=== PATIENT | female | born 1940 | race Caucasian/White ===

== ENCOUNTER → 2018-04-21 07:59 | Outpatient (CLI) | payer OTHER, SELFPAY ==
[2018-04-21 08:04] LABS: Bacteria Urine None Seen; RBC Urine None Seen (0-5/HPF); WBC Urine None Seen (0-5/HPF)
[2018-04-21 08:48] LABS: Appearance Urine UA CLEAR; Bilirubin Urine UA NEGATIVE (NEGATIVE); Color Urine UA YELLOW; Glucose Urine UA NEGATIVE (Normal); Ketones Urine UA TRACE (NEGATIVE); Leukocyte Esterase Urine UA TRACE (NEGATIVE); Nitrite Urine UA Negative (Negative); Occult Blood Urine UA TRACE-LYSED (Negative); Protein Urine UA NEGATIVE (Negative); Urobilinogen Urine UA 0.2 E.U./dL (0.2)
[2018-04-21 09:04] LABS: Add Manual Diff / Slide Review NO; Basophils Percent Auto 0.4 % (0-2); Hematocrit 44.7 % (36-46); Hemoglobin 15.1 g/dL (12.0-16.0); Lymphocytes Percent Auto 41.3 % (25-40); Mean Corpuscular HGB Conc 33.8 % (30-36); Mean Corpuscular Hemoglobin 32.2 PG (26-34); Mean Corpuscular Volume 95.3 fL (80-100); Monocytes Percent Auto 4.6 % (3-14); Neutrophils Absolute Auto 5700 /uL (3000-5900); Neutrophils Percent Auto 50.7 % (50-75); Platelet Count 348 X10^3/uL (150-400); Red Blood Cell Count 4.69 X10^6/uL (4.0-5.2); White Blood Cell Count 11.3 X10^3/uL (4.5-11.0)
[2018-04-21 09:09] LABS: Alanine Aminotransferase 26 IU/L (9-52); Albumin 4.9 g/dL (3.5-5.0); Albumin Globulin Ratio 1.6 (1.0-2.8); Alkaline Phosphatase 61 U/L (38-126); Aspartate Aminotransferase 24 IU/L (14-36); Bilirubin Total 0.4 mg/dL (0.2-1.3); Blood Urea Nitrogen 21 mg/dL (7-17); Calcium 9.7 mg/dL (8.4-10.2); Carbon Dioxide 25 mmol/L (22-32); Chloride 108 mmol/L (98-107); Estimated Glomerular Filt Rate > 60.0 mL/min (>60); Glucose 109 mg/dL (80-110); HEMOLYSIS < 15 (0-50); Potassium 3.9 mmol/L (3.4-5.1); Sodium 146 mmol/L (137-145); Total Protein 7.9 g/dL (6.3-8.2)
[2018-04-21 09:14] LABS: Culture Indicated Urine Cult Not Indicated; Urine Comments Microscopic Normal
[2018-04-21 09:41] LABS: Thyroid Stimulating Hormone 1.55 uIU/mL (0.47-4.68)
== END ==
PROVIDERS: PCP Family Medicine; Visit Provider Family Medicine
DX: E78.5 Hyperlipidemia, unspecified (principal); Z51.81 Encounter for therapeutic drug level monitoring
CPT/HCPCS: 36415; 80053; 81001; 84443; 85025

== ENCOUNTER → 2018-11-23 07:23 | Outpatient (CLI) | payer OTHER, SELFPAY ==
[2018-11-23 08:15] LABS: Alanine Aminotransferase 28 IU/L (9-52); Albumin 4.5 g/dL (3.5-5.0); Albumin Globulin Ratio 1.7 (1.0-2.8); Alkaline Phosphatase 67 U/L (38-126); Aspartate Aminotransferase 27 IU/L (14-36); BUN Creatinine Ratio 27.1 (6-22); Bilirubin Total 0.3 mg/dL (0.2-1.3); Blood Urea Nitrogen 19 mg/dL (7-17); Calcium 9.3 mg/dL (8.4-10.2); Carbon Dioxide 27 mmol/L (22-32); Chloride 105 mmol/L (98-107); Cholesterol 196 mg/dL (140-199); Estimated Glomerular Filt Rate > 60.0 mL/min (>60); Globulin 2.6 g/dL (1.7-4.1); Glucose 105 mg/dL (80-110); HDL Cholesterol 75 mg/dL (40-60); HEMOLYSIS < 15 (0-50); LDL Cholesterol Calculated 86 mg/dL (<100); Potassium 3.7 mmol/L (3.4-5.1); Sodium 140 mmol/L (137-145); Total Protein 7.1 g/dL (6.3-8.2); Triglycerides 173 mg/dL (35-150)
== END ==
PROVIDERS: Family Provider Family Medicine; PCP Family Medicine; Visit Provider Family Medicine
DX: E78.5 Hyperlipidemia, unspecified (principal)
CPT/HCPCS: 36415; 80053; 80061

== ENCOUNTER → 2019-04-19 07:34 | Outpatient (CLI) | payer OTHER, SELFPAY ==
[2019-04-19 08:26] LABS: Hematocrit 39.6 % (36-46); Hemoglobin 13.5 g/dL (12.0-16.0); Mean Corpuscular HGB Conc 34.1 % (30-36); Mean Corpuscular Hemoglobin 32.9 PG (26-34); Mean Corpuscular Volume 96.5 fL (80-100); Platelet Count 272 X10^3/uL (150-400); Red Blood Cell Count 4.11 X10^6/uL (4.0-5.2); Red Cell Distribution Width 13.5 % (11.6-14.8); White Blood Cell Count 7.7 X10^3/uL (4.5-11.0)
[2019-04-19 08:40] LABS: HEMOLYSIS < 15 (0-50); Sodium 140 mmol/L (137-145)
[2019-04-19 08:41] LABS: Alanine Aminotransferase 35 IU/L (9-52); Albumin 4.3 g/dL (3.5-5.0); Albumin Globulin Ratio 1.7 (1.0-2.8); Alkaline Phosphatase 71 U/L (38-126); Aspartate Aminotransferase 36 IU/L (14-36); BUN Creatinine Ratio 31.4 (6-22); Bilirubin Total 0.4 mg/dL (0.2-1.3); Blood Urea Nitrogen 22 mg/dL (7-17); Calcium 9.2 mg/dL (8.4-10.2); Carbon Dioxide 26 mmol/L (22-32); Chloride 105 mmol/L (98-107); Cholesterol 193 mg/dL (140-199); Estimated Glomerular Filt Rate > 60.0 mL/min (>60); Globulin 2.5 g/dL (1.7-4.1); Glucose 105 mg/dL (80-110); HDL Cholesterol 95 mg/dL (40-60); LDL Cholesterol Calculated 78 mg/dL (<100); Potassium 4.3 mmol/L (3.4-5.1); Total Protein 6.8 g/dL (6.3-8.2); Triglycerides 99 mg/dL (35-150)
[2019-04-19 08:44] LABS: Neutrophils Absolute Manual 4466 /uL (3000-5900); RBC Morphology Normal Morphology; Total Cells Counted 100
[2019-04-19 09:14] LABS: Thyroid Stimulating Hormone 0.99 uIU/mL (0.47-4.68)
== END ==
PROVIDERS: Family Provider Family Medicine; PCP Family Medicine; Visit Provider Family Medicine
DX: E78.5 Hyperlipidemia, unspecified (principal)
CPT/HCPCS: 36415; 80053; 80061; 84443; 85025

== ENCOUNTER → 2019-07-07 08:59 | Outpatient (CLI) | payer OTHER, SELFPAY ==
--- NOTE | 2019-07-07 09:03 | DI.RAD.S_ITS ---
PROCEDURE: XR SHOULDER LT MIN 2V INDICATIONS: Left shoulder pain TECHNIQUE: 3 views of the shoulder were acquired. COMPARISON: None. FINDINGS: Bones: No fractures or dislocations. No suspicious bony lesions. Visualized ribs appear intact. Moderate to severe acromioclavicular degenerative narrowing. Mild glenohumeral narrowing. Soft tissues: No suspicious soft tissue calcifications. IMPRESSION: Acromioclavicular and glenohumeral narrowing as above. Dictated by: Ele Wood M.D. on 07/07/2019 at 9:04 Approved by: Ele Wood M.D. on 07/07/2019 at 9:06
--- NOTE | 2019-07-07 09:03 | DI.RAD.S_ITS ---
PROCEDURE: XR CERVICAL SPINE 2V OR 3V INDICATIONS: pain into left shoulder TECHNIQUE: 3 view(s) of the cervical spine were acquired. COMPARISON: None. FINDINGS: Bones: There is trace anterolisthesis of C4 on C5, trace retrolisthesis of C5 on C6, C6 on C7. There is mild sclerosis and compression deformity at C5 of indeterminate age. Severe disc space narrowing is present at C5-6 and C6-7. Soft tissues: No prevertebral soft tissue swelling. IMPRESSION: 1. Multilevel degenerative changes. 2. Sclerosis and compression deformity at C5 likely reflective of prior trauma. However, if there is concern for neoplasm, bone scan is recommended. Dictated by: Ele Wood M.D. on 07/07/2019 at 9:06 Approved by: Ele Wood M.D. on 07/07/2019 at 9:09
== END ==
PROVIDERS: PCP Family Medicine; Visit Provider Family Medicine
DX: S16.1XXA Strain of muscle, fascia and tendon at neck level, initial encounter (principal); M25.512 Pain in left shoulder; M47.812 Spondylosis without myelopathy or radiculopathy, cervical region; X58.XXXA Exposure to other specified factors, initial encounter
CPT/HCPCS: 72040; 73030

== ENCOUNTER → 2019-08-23 07:43 | Outpatient (CLI) | payer OTHER, SELFPAY ==
[2019-08-23 08:13] LABS: Appearance Urine UA CLEAR; Bilirubin Urine UA NEGATIVE (NEGATIVE); Color Urine UA YELLOW; Glucose Urine UA NEGATIVE (Negative); Ketones Urine UA NEGATIVE (NEGATIVE); Leukocyte Esterase Urine UA TRACE (NEGATIVE); Nitrite Urine UA NEGATIVE (Negative); Occult Blood Urine UA TRACE-LYSED (Negative); Protein Urine UA NEGATIVE (Negative); Urobilinogen Urine UA 0.2 E.U./dL (0.2)
[2019-08-23 08:24] LABS: Add Manual Diff / Slide Review NO; Basophils Absolute Auto 100 /uL (0-100); Eosinophils Absolute Auto 200 /uL (0-450); Eosinophils Percent Auto 2.8 % (2-4); Hematocrit 39.1 % (36-46); Hemoglobin 13.5 g/dL (12.0-16.0); Lymphocytes Absolute Auto 3000 /uL (1100-4500); Lymphocytes Percent Auto 42.1 % (25-40); Mean Corpuscular HGB Conc 34.5 % (30-36); Mean Corpuscular Hemoglobin 33.9 PG (26-34); Mean Corpuscular Volume 98.2 fL (80-100); Monocytes Absolute Auto 400 /uL (0-900); Neutrophils Absolute Auto 3500 /uL (1500-7000); Neutrophils Percent Auto 49.1 % (50-75); Platelet Count 325 X10^3/uL (150-400); Red Blood Cell Count 3.98 X10^6/uL (4.0-5.2); Red Cell Distribution Width 13.7 % (11.6-14.8)
[2019-08-23 08:25] LABS: Alanine Aminotransferase 58 IU/L (<35); Albumin 4.4 g/dL (3.5-5.0); Albumin Globulin Ratio 1.5 (1.0-2.8); Alkaline Phosphatase 78 U/L (38-126); Aspartate Aminotransferase 48 IU/L (14-36); BUN Creatinine Ratio 35.7 (6-22); Bilirubin Total 0.4 mg/dL (0.2-1.3); Blood Urea Nitrogen 25 mg/dL (7-17); Calcium 9.6 mg/dL (8.4-10.2); Carbon Dioxide 27 mmol/L (22-32); Chloride 105 mmol/L (98-107); Cholesterol 224 mg/dL (140-199); Estimated Glomerular Filt Rate > 60.0 mL/min (>60); Glucose 111 mg/dL (80-110); HDL Cholesterol 98 mg/dL (40-60); HEMOLYSIS < 15 (0-50); LDL Cholesterol Calculated 96 mg/dL (<100); Potassium 4.5 mmol/L (3.4-5.1); Sodium 139 mmol/L (137-145); Total Protein 7.4 g/dL (6.3-8.2); Triglycerides 152 mg/dL (35-150)
[2019-08-23 08:29] LABS: Bacteria Urine Few (2-10); Culture Indicated Urine Specimen Cultured; RBC Urine 0-1/HPF (0-5/HPF); WBC Urine 0-1/HPF (0-5/HPF)
[2019-08-23 09:01] LABS: Thyroid Stimulating Hormone 1.67 uIU/mL (0.47-4.68)
== END ==
PROVIDERS: PCP Family Medicine; Visit Provider Family Medicine
DX: E78.5 Hyperlipidemia, unspecified (principal); G47.00 Insomnia, unspecified; M19.90 Unspecified osteoarthritis, unspecified site
CPT/HCPCS: 36415; 80053; 80061; 81003; 81015; 84443; 85025; 87086

== ENCOUNTER 2024-02-10 07:33 | Emergency (ER) | payer OTHER, SELFPAY ==
[2024-02-10 07:40] VITALS: BP 108/63; PULSE 77; RESP 18; TEMP 36.6; O2SAT 99; BMI 20.1
--- NOTE | 2024-02-10 07:42 | ED.EXTPRO ---
HPI - Extremity Problem General Chief complaint: Extremity Injury, Lower Stated complaint: fall Time Seen by Provider: 02/10/24 07:38 History of Present Illness HPI Narrative: Patient brought here by a friend/neighbor for pain to the right knee ankle and foot. Patient states getting out of bed yesterday morning lost her balance and fell onto her right knee. Denies any other injuries. Patient wearing shorts. Shoes and socks removed. Is not on any blood thinners. Denies any head injury no hip or pelvis pain. No upper extremity pain or injury. Has been bearing weight but tiptoeing she states. Related Data Home Medications Medication Instructions Recorded Confirmed [MOVE FREE JOINT HEAL] PO QDAY ##0 09/11/12 08/24/19 [vitamin d3] 2,000 iu PO QDAY ##0 09/11/12 08/24/19 ascorbic acid (vitamin C) 500 mg 500 mg PO QDAY ##0 09/11/12 08/24/19 tablet acetaminophen 500 mg tablet 500 mg PO Q6HP PRN ##0 07/16/16 08/24/19 (Tylenol Extra Strength) Previous Rx's Medication Instructions Recorded simvastatin 40 mg tablet 40 mg PO BEDTIME #30 tabs 06/07/20 zolpidem 10 mg tablet 10 mg PO HS #30 tabs 09/20/20 Allergies Allergy/AdvReac Type Severity Reaction Status Date / Time codeine [CODEINE] Allergy Mild CONSTIPATIO Verified 08/24/19 13:21 N aspirin [ASPIRIN] Allergy Unknown STOMACH Verified 08/24/19 13:21 ISSUES Review of Systems Review of Systems Narrative: GENERAL: negative chills, fatigue, malaise, fever, sweats. HEENT: negative sinus pain, ear pain, sore throat RESPIRATORY: negative dyspnea, cough CARDIOVASCULAR: negative chest pain, palpitations GASTROINTESTINAL: negative nausea, vomiting, abdominal pain : negative dysuria, frequency, hematuria MUSCULOSKELETAL: Positive muscle or bony pain SKIN: negative rash, skin lesions NEUROLOGIC: negative weakness, numbness ROS Unobtainable: All systems reviewed & are unremarkable except as noted in HPI and below Patient History Medical History (Updated 02/10/24 @ 08:38 by Champ Muller MD) Anxiety Insomnia Arthritis Allergic rhinitis Anemia Hyperlipemia Surgical History Status post hysterectomy (1985) Family History Brother No problems noted. Father Cancer Mother Heart disease Social History Smoking Status: Never smoker Smoking Status: Never smoker Exam Narrative Exam Narrative: GENERAL: in no distress, not toxic not dyspneic HEAD: Normocephalic. EYES: Pupils equal round ENT: Mucous membranes moist. NECK: Trachea midline. No midline tenderness step-off of the cervical spine CARDIOVASCULAR: Regular rate and rhythm RESPIRATORY: Clear to auscultation. Breath sounds equal bilaterally. No wheezes, rales, or rhonchi. GASTROINTESTINAL: Abdomen soft, non-tender EXTREMITIES: No gross deformities. Examination right lower extremity nontender hip. Able to fully flex and extend at the hip. There is edema to the patella of the right knee. There is ability to fully extend and flex to 90?. Actively. No pain or laxity of the right knee with anterior posterior medial lateral and rotational stress of the right leg. There is mild edema to the lateral ankle and dorsum of the foot. Otherwise no gross deformities. Foot is warm soft and pink with strong pedal pulse and light touch intact to foot and toes. Brisk cap refills. No abrasion or laceration. There is bruising to the patella. BACK: No flank tenderness. NEURO: AOx4. SKIN: Warm and dry PSYCH: Not anxious, is cooperative Initial Vital Signs Initial Vital Signs: Vital Signs Temperature 97.9 F 02/10/24 07:40 Pulse Rate 77 02/10/24 07:40 Respiratory Rate 18 02/10/24 07:40 Blood Pressure 108/63 02/10/24 07:40 Pulse Oximetry 99 02/10/24 07:40 Oxygen Delivery Method Room Air 02/10/24 07:40 Procedures Orthopedic Splinting/Casting Injury #1: Time of procedure: 08:42 Side: right Lower Extremity Injury Location: ankle Lower Extremity Immobilizer: AirCast Post splinting neuro exam: intact and no change Post splinting vascular exam: no change Placed by: Nursing Course Orders Ordered: ED Orders 02/10/24 07:41 XR ankle RT min 3V Stat XR foot RT min 3V Stat XR knee RT 3V Stat Vital Signs Vital signs: Vital Signs - 8 hr 02/10/24 07:40 02/10/24 08:53 Temperature 97.9 F 97.7 F Pulse Rate 77 88 Respiratory Rate 18 20 Blood Pressure 108/63 121/79 Pulse Oximetry 99 99 Oxygen Delivery Method Room Air Room Air MDM - Extremity (Nontraumatic) Imaging Data Extremity x-ray #1: Radiologist's Impression: [address] [address] XRay Report Signed Patient: Hafsa Gómez MR#: [id number] : 1940 Acct:[id number] Age/Sex: 83 / F Date of Service: 02/10/24 Loc: ED Accession Number: [id number] Procedure: XR knee RT 3V Ordering Provider: Champ Muller MD PROCEDURE: XR KNEE RT 3V INDICATIONS: pain/injury TECHNIQUE: 3 views of the knee were acquired. COMPARISON: None. FINDINGS: Bones: No fractures or dislocations. Mild degenerative changes of the knee. No suspicious bony lesions. Soft tissues: Small joint effusion. No suspicious soft tissue calcifications. IMPRESSION: No acute osseous abnormality. Small knee joint effusion. If pain persists with conservative management, consider repeat x-ray in 10-14 days or cross-sectional imaging. Dictated by: Patrick King M.D. on 02/10/2024 at 8:27 Approved by: Patrick King M.D. on 02/10/2024 at 8:28 Extremity x-ray #2: Radiologist's Impression: [address] [address] XRay Report Signed Patient: Hafsa Gómez MR#: [id number] : 1940 Acct:[id number] Age/Sex: 83 / F Date of Service: 02/10/24 Loc: ED Accession Number: [id number] Procedure: XR foot RT min 3V Ordering Provider: Champ Muller MD PROCEDURE: XR FOOT RT MIN 3V INDICATIONS: pain/injury TECHNIQUE: 3 views of the foot were acquired. COMPARISON: None. FINDINGS: Bones: No fractures or dislocations. Severe 1st MTP joint degeneration. Mild diffuse interphalangeal joint degeneration. No suspicious bony lesions. Soft tissues: No tibiotalar joint effusion. Achilles tendon appears normal. IMPRESSION: No acute osseous abnormality. If pain persists with conservative management, consider repeat x-ray in 10-14 days or cross-sectional imaging. Dictated by: Patrick King M.D. on 02/10/2024 at 8:26 Approved by: Patrick King M.D. on 02/10/2024 at 8:27 Extremity x-ray #3: Radiologist's Impression: [address] [address] XRay Report Signed Patient: Hafsa Gómez MR#: [id number] : 1940 Acct:[id number] Age/Sex: 83 / F Date of Service: 02/10/24 Loc: ED Accession Number: [id number] Procedure: XR ankle RT min 3V Ordering Provider: Champ Muller MD PROCEDURE: XR ANKLE RT MIN 3V INDICATIONS: Pain/injury TECHNIQUE: Or 3 views of the ankle were acquired. COMPARISON: None. FINDINGS: Bones: No fractures or dislocations. Ankle mortise is normally aligned. No suspicious bony lesions. Soft tissues: No tibiotalar joint effusion. Achilles tendon appears normal. IMPRESSION: No acute osseous abnormality. If pain persists with conservative management, consider repeat x-ray in 10-14 days or cross-sectional imaging. Dictated by: Patrick King M.D. on 02/10/2024 at 8:26 Approved by: Patrick King M.D. on 02/10/2024 at 8:26 MDM Narrative Medical decision making narrative: Patient brought here by a friend/neighbor for pain to the right knee ankle and foot. Patient states getting out of bed yesterday morning lost her balance and fell onto her right knee. Denies any other injuries. Patient wearing shorts. Shoes and socks removed. Is not on any blood thinners. Denies any head injury no hip or pelvis pain. No upper extremity pain or injury. Has been bearing weight but tiptoeing she states. After history and exam x-ray right knee foot and ankle, pain is controlled, patient does not want anything for pain. Ice pack ordered MDM Differential considered: Includes but not limited to knee ankle foot fracture dislocation contusion strain sprain Imaging studies independently reviewed: X-ray right foot ankle and knee, no acute fracture Consultations: Referral orthopedics provided Treatments: Pain is controlled, ice pack provided Re-evaluations: 8:38 a.m.. Reviewed with patient exam and imaging results. Return precautions reviewed, repeat imaging 7-10 days if not improving. Referral for Orthopedics provided. Pain is controlled. Friend is helping patient at home for other needs as well. They will go to a facility for a rental walker on their way home now. They desire discharge home Discussion: Appropriate for discharge home exam is reassuring. Leg and foot neurovascularly intact. Pain is controlled. Return precautions reviewed. Orthopedic provider referral given. Not toxic at discharge. They desire discharge home Diagnosis: Knee contusion ankle/foot sprain Discharge Plan Departure Patient Disposition: Home Clinical Impression: Contusion of knee, right Qualifiers: Encounter type: initial encounter Qualified Code(s): S80.01XA - Contusion of right knee, initial encounter Mild sprain of right ankle Qualifiers: Encounter type: initial encounter Qualified Code(s): S93.401A - Sprain of unspecified ligament of right ankle, initial encounter Right foot sprain Qualifiers: Encounter type: initial encounter Qualified Code(s): S93.601A - Unspecified sprain of right foot, initial encounter Instructions: DI for Ankle Sprain, DI for Contusion, DI for Foot Sprain Activity Restrictions/Additional Instructions: Your exam and x-ray imaging are reassuring today. However you may need repeat imaging if not improving 710 days. Please call provided orthopedic office today make appointment to follow up in 7-10 days. May continue ibuprofen or Tylenol for pain. Please use provided ice pack 20 minutes at a time as needed for pain and swelling to the joints. Use a walker as you have plan. Please use ankle splint until office appointment time. You may remove it for showering/bathing. Return if worse if any questions or concerns Prescriptions: No Action ascorbic acid (vitamin C) 500 MG tablet 500 mg PO QDAY Qty: 0 [MOVE FREE JOINT HEAL] PO QDAY Qty: 0 [vitamin d3] 2,000 iu PO QDAY Qty: 0 acetaminophen [Tylenol Extra Strength] 500 MG tablet 500 mg PO Q6HP PRNQty: 0 simvastatin 40 mg tablet 40 mg PO BEDTIME Qty: 30 0RF Rx Instructions: NO FUTHER REFILLS UNTIL SEEN. zolpidem 10 mg tablet 10 mg PO HS Qty: 30 0RF Referrals: Armond Francis, [Primary Care Provider] - Lj Santana MD [Physician] - Stand Alone Forms: Patient Portal/API
[2024-02-10 08:53] VITALS: BP 121/79; PULSE 88; RESP 20; TEMP 36.5; O2SAT 99
== END 2024-02-10 08:57 | disposition home or self-care (01) ==
PROVIDERS: Emergency Provider Emergency Medicine; PCP Family Medicine
DX: S80.01XA Contusion of right knee, initial encounter (principal); S93.401A Sprain of unspecified ligament of right ankle, initial encounter; S93.601A Unspecified sprain of right foot, initial encounter; W18.30XA Fall on same level, unspecified, initial encounter
CPT/HCPCS: 73562; 73610; 73630; 99281; 99283